=== PATIENT | female | born 1975 | race African-American/Black ===

== ENCOUNTER 2023-09-09 16:42 | Outpatient (CLI) | payer OTHER, SELFPAY | END 2023-09-09 16:43 | disposition home or self-care (01) | LOC: NFLDREF 09-11 06:03 | PROVIDERS: Visit Provider Physician Assistant | DX: R10.9 Unspecified abdominal pain (principal) | CPT/HCPCS: 87086 ==

== ENCOUNTER 2023-09-09 19:31 | Emergency (ER) | payer OTHER, SELFPAY ==
[2023-09-09 19:54] VITALS: BP 150/94; PULSE 88; RESP 16; TEMP 36.7; O2SAT 100; BMI 28.7
--- NOTE | 2023-09-09 20:26 | ED.GENADULT ---
HPI - General Adult General Date Seen: 09/09/23 Chief complaint: Back Injury/Pain Stated complaint: Ref from -pain in lower R back-Did UA there Time Seen by Provider: 09/09/23 20:25 History of Present Illness HPI narrative: 48-year-old female was referred from the Urgent Care to the ER for evaluation of right flank pain and back pain. She did rule is a dialysis and fluid appeared to [place] to visit family 2 days ago on Thursday. She had presented to the urgent care this evening for evaluation of right lower back pain that began about 2 days ago, after she arrived in [place]. 48 hours ago. He pain began after she flew from [place] up to [place]. She did carry her luggage to the ER for but does recall heavy lifting or other twisting or injury.t It is sharp and burning, in the right flank. It also radiates around the right lateral abdomen to the right upper quadrant but is much more mild in the anterior compared to the posterior. Pain is worse with movement did twisting. It is not really related to eating. No fever. No nausea or vomiting. Urination normal. Bowel movements normal. She has no previous history of similar paid. No other recent right upper quadrant pains to suggest biliary colic. In urgent care urinalysis was reported as ?normal. In review it shows 0-2 RBC, 0-2 WBC, moderate squames, negative nitrite, negative leukocyte esterase, negative blood, and trace ketones. Negative glucose. Related Data Home Medications Medication Instructions Recorded Confirmed No Known Home Medications 09/09/23 09/09/23 Allergies Allergy/AdvReac Type Severity Reaction Status Date / Time No Known Drug Allergies Allergy Verified 09/09/23 19:53 PFSH PFS Social History Smoking Status: Never smoker Do you use any of these nicotine containing products: None How often do you have a drink containing alcohol: never AUDIT-C Alcohol total score: 0 Non-prescribed substance use: denies use Exam Narrative: Exam Narrative: Constitutional: Appears well-developed and well-nourished. Alert. Conversant, but uncomfortable. Non toxic. HENT: Head: Atraumatic. Nose: Nose normal. Mouth/Throat: Oral mucosa is clear and moist. no trismus. Pharynx normal. Tonsils symmetric. No tonsillar enlargement, erythema, or exudate. Eyes: Conjunctivae normal. EOM normal. Pupils equal, round, and reactive to light. No scleral icterus. Neck: Normal range of motion. Neck supple. No tracheal deviation present. Cardiovascular: Normal rate, regular rhythm. No gallop. No friction rub. No murmur heard. Symmetric radial artery pulses Pulmonary/Chest: Effort normal. No stridor. No respiratory distress. No wheezes. No rales. No rhonchi . No tenderness. Abdominal: Soft. Bowel sounds normal. No distension. No mass. No tenderness. No rebound. No guarding. Marked right CVA tenderness. No swelling, bruising, abrasion cover shingles. Very mild right upper quadrant tenderness but negative Mckay sign. No palpable hepatomegaly. Musculoskeletal: RUE: Normal range of motion. No tenderness. No deformity LUE: Normal range of motion. No tenderness. No deformity RLE: Normal range of motion. No edema. No tenderness. No deformity LLE: Normal range of motion. No edema. No tenderness. No deformity Lymph: No cervical adenopathy. Neurological: Alert and oriented to person, place, and time. Normal strength. CN II-VII intact. No sensory deficit. GCS eye subscore is 4. GCS verbal subscore is 5. GCS motor subscore is 6. Normal coordination Skin: Skin is warm and dry. No rash noted. No pallor. Normal capillary refill. Psychiatric: Normal mood. Normal affect. Const: Vital Signs, click to edit/add: Vital Signs - 24 hr 09/09/23 19:54 09/09/23 23:32 Temperature 98.1 F 98.1 F Pulse Rate [Pulse Oximeter] 88 79 Respiratory Rate 16 16 Blood Pressure [Ri ght Upper Arm] 150/94 H 135/84 Pulse Oximetry 100 100 Oxygen Delivery Me thod Room Air Room Air Course Vital Signs Vital signs: Initial Vital Signs Temperature 98.1 F 09/09/23 19:54 Temperature Source Temporal Artery Scan 09/09/23 19:54 Pulse Rate 88 09/09/23 19:54 Respiratory Rate 16 09/09/23 19:54 Blood Pressure 150/94 H 09/09/23 19:54 Blood Pressure Mean 112 H 09/09/23 19:54 Blood Pressure Position Sitting 09/09/23 19:54 Pulse Oximetry 100 09/09/23 19:54 Oxygen Delivery Method Room Air 09/09/23 19:54 Vital Signs Temperature 98.1 F 09/09/23 19:54 Pulse Rate 88 09/09/23 19:54 Respiratory Rate 16 09/09/23 19:54 Blood Pressure 150/94 H 09/09/23 19:54 Pulse Oximetry 100 09/09/23 19:54 Oxygen Delivery Method Room Air 09/09/23 19:54 Temperature 98.1 F 09/09/23 23:32 Pulse Rate 79 09/09/23 23:32 Respiratory Rate 16 09/09/23 23:32 Blood Pressure 135/84 09/09/23 23:32 Pulse Oximetry 100 09/09/23 23:32 Oxygen Delivery Method Room Air 09/09/23 23:32 Medications Administered Medications: Discontinued Medications Generic Name Dose Route Start Last Admin Trade Name Freq PRN Reason Stop Dose Admin Hydromorphone HCl 0.5 mg 09/09/23 20:39 09/09/23 21:21 Hydromorphone 0.5 Mg/0.5 Ml Inj IVP 0.5 mg Q1H PRN Administration Pain Metoclopramide HCl 10 mg 09/09/23 23:27 09/09/23 23:32 Metoclopramide Hcl 5 Mg/Ml Inj IVP 09/09/23 23:28 Not Given ONCE ONE Ondansetron HCl 4 mg 09/09/23 20:39 09/09/23 21:21 Ondansetron 2 Mg/Ml Inj IVP 09/09/23 20:40 4 mg ONCE ONE Administration Medical Decision Making MDM Narrative Medical decision making narrative: Presented to the Emergency Department with right flank pain with some radiation into the right upper quadrant. The differential diagnosis of abdominal pain includes: Kidney stone, cholecystitis, biliary colic, shingles, Appendicitis, Bowel Obstruction, Ulcer, Ischemia, Cholecystitis, Diverticulitis, Pancreatitis, UTI, kidney stone, Enteritis/Colitis, amongst many other etiologies. UA from urgent care was normal. Laboratory testing does not reveal a cause for the patient's pain. CT abdomen pelvis is noted to be normal. No evidence for any obstructing stones or pyelonephritis head CT. No evidence for any radiopaque gallstones on CT. No evidence for any pericholecystic fluid, inflammation on CT. Discussed with the patient and her aunt, who is with her, that gallbladder ultrasound would be a more sensitive test to look for gallstones. However with no lab abnormalities, and no evidence for any inflammation around the gallbladder, likelihood of needing acute surgical intervention for acute cholecystitis at this point is low. They would prefer to hold off on excess testing if possible because she is traveling and currently out of her network for her insurance. I think it is reasonable to treat supportively for now with close return precautions. Discussed with the patient and her aunt that the exact etiology of the abdominal pain is not clear at this time. No life threatening cause or need for emergent surgery or hospital admission is detected today. The patient was advised that if symptoms do not completely resolve within another 24-36 hours re-evaluation with primary care or return to the ED is indicated. The patient also understands that if they worsen, they should return to the ER right away. I discussed the uncertainty about the diagnosis and answered the patient's questions. Abdominal pain return precautions discussed In [place] prescriptions for Luke, Flexeril, Zofran for supportive care. Opiate sedation precautions reviewed. Lab Data Labs: Lab Results 09/09/23 Range/Units 21:05 WBC 10.83 (4.50-11.00) K/uL RBC 5.01 (4.00-5.20) m/uL Hgb 12.6 (12.0-16.0) gm/dL Hct 38.7 (33.0-51.0) % MCV 77 L (80-100) fL MCH 25 L (26-34) pg MCHC 33 (32-36) gm/dL RDW Coeff of Wilber 14.4 (11.5-15.5) % Plt Count 306 (140-440) K/uL Neut % (Auto) 52.9 (42.0-72.0) % Lymph % (Auto) 38.7 (20-44) % [place] % (Auto) 6.6 (0.0-11.0) % Eos % (Auto) 1.3 (0.0-7.0) % Baso % (Auto) 0.4 (0.0-3.0) % Neut # (Auto) 5.74 (1.7-7.0) K/uL Lymph # (Auto) 4.19 H (0.90-2.90) K/uL [place] # (Auto) 0.70 (0.00-0.90) K/UL Eos # (Auto) 0.14 (0.00-0.50) K/uL Baso # (Auto) 0.04 (0.00-0.30) K/uL Abs Immat Gran (auto) 0.01 (0.00-0.30) K/uL Imm/Tot Granulo (auto) 0.1 % Sodium 137 (135-149) mmol/L Potassium 3.2 L (3.6-5.1) mmol/L Chloride 105 (96-114) mmol/L Carbon Dioxide 23 (20-32) mmol/L Anion Gap 9 (7-15) mEq/L BUN 10 (5-24) mg/dL Creatinine 0.6 (0.5-1.5) mg/dL Estimated Creat Clear 126.69 Estimated GFR 112 ml/min Glucose 85 (60-115) mg/dL Calcium 8.4 (8.4-10.6) mg/dL Total Bilirubin 0.4 (0.1-1.5) mg/dL AST 19 (12-35) U/L ALT 19 (4-35) U/L Alkaline Phosphatase 137 (40-150) U/L Total Protein 7.5 (6.0-8.3) g/dL Albumin 4.1 (3.3-5.0) g/dL Lipase 41 (23-300) U/L HCG, Qual Negative (Negative) Discharge Plan Discharge Clinical Impression: Acute right flank pain Patient Disposition: Home, Self-Care Condition: Stable Instructions: Abdominal Pain (ED), Flank Pain (ED) Additional Instructions: As we discussed, use caution with pain killers and muscle relaxers because they can cause drowsiness and dizziness. Do not drive a car or operate machinery for 6 hours after you have taken these medications. Use caution with Luke because it can cause constipation. Luke can be addictive. If you have worsening symptoms such as worsening pain, fever, trouble breathing, uncontrolled nausea or vomiting, jaundice, or any concerns, please return to the ER immediately. If your pain is not improving within the next 24-48 hours, please return to the ER or see your doctor for a recheck. Prescriptions: No Action No Known Home Medications Follow Up/Referrals: Provider,Not a Local [Primary Care Provider] - Stand Alone Forms: [employer] Info Instructions
--- NOTE | 2023-09-09 20:39 | CRLHL7_ITS ---
For Patients: As a result of the Century Cures Act, medical imaging exams and procedure reports are released immediately into your electronic medical record. You may view this report before your referring provider. If you have questions, please contact your health care provider. INDICATION: Right flank pain, right upper quadrant pain TECHNIQUE: CT abdomen and pelvis without contrast. COMPARISON: None. FINDINGS: Lower chest: Bibasilar atelectasis and/or scarring. No acute abnormality appreciated. Hepatobiliary: No acute abnormality appreciated. Spleen: Unremarkable. Pancreas: Unremarkable. Adrenal glands: Unremarkable. Kidneys: No gross parenchymal abnormality appreciated. No calculi are visualized. No hydronephrosis. Bowel: No obstruction. No focal perienteric or pericolonic stranding is appreciated. The appendix is visualized and appears unremarkable. Vascular: Unremarkable. Lymph nodes: Unremarkable. Peritoneum: No free air. No free fluid. : IUD present. Bulky uterus with at least 1 large, possibly degenerating fibroid arising from the left fundus. Soft tissues: Unremarkable. Bones: No acute abnormality appreciated. IMPRESSION: 1. No calculi or hydronephrosis appreciated. 2. Bulky uterus with at least 1 large mass likely representing a degenerating fibroid, not well evaluated on this examination. Pelvic ultrasound could be considered for further evaluation. Please note that all CT scans at this facility use dose modulation, iterative reconstruction, and/or weight-based dosing when appropriate to reduce radiation dose to as low as reasonably achievable. Dictated by Ricardo Sullivan MD @ 09/09/2023 9:28:03 PM (Electronically Signed)
[2023-09-09 21:20] LABS: Basophils Absolute Auto 0.04 K/uL (0.00-0.30); Basophils Percent Auto 0.4 % (0.0-3.0); Eosinophils Absolute Auto 0.14 K/uL (0.00-0.50); Eosinophils Percent Auto 1.3 % (0.0-7.0); Hematocrit 38.7 % (33.0-51.0); Hemoglobin* 12.6 gm/dL (12.0-16.0); Immature Granulocytes Abs Auto 0.01 K/uL (0.00-0.30); Immature Granulocytes Pct Auto 0.1 %; Lymphocytes Absolute Auto 4.19 K/uL (0.90-2.90); Lymphocytes Percent Auto 38.7 % (20-44); Mean Corpuscular HGB Conc 33 gm/dL (32-36); Mean Corpuscular Hemoglobin 25 pg (26-34); Mean Corpuscular Volume 77 fL (80-100); Monocytes Percent Auto 6.6 % (0.0-11.0); Neutrophils Absolute Auto 5.74 K/uL (1.7-7.0); Neutrophils Percent Auto 52.9 % (42.0-72.0); Platelet Count* 306 K/uL (140-440); RDW Coefficient of Variation % 14.4 % (11.5-15.5); Red Blood Count 5.01 m/uL (4.00-5.20); White Blood Count* 10.83 K/uL (4.50-11.00)
[2023-09-09] MEDS: ONDANSETRON 2 MG/ML inj 4 MG IVP (21:21)
[2023-09-09] MEDS: HYDROmorphone 0.5 mg/0.5 ml inj IVP (21:21)
[2023-09-09 21:26] LABS: Slide Review Reflex No
[2023-09-09 22:07] LABS: Albumin* 4.1 g/dL (3.3-5.0); Chloride* 105 mmol/L (96-114); Potassium* 3.2 mmol/L (3.6-5.1); Sodium* 137 mmol/L (135-149)
[2023-09-09 22:09] LABS: Anion Gap 9 mEq/L (7-15); Aspartate Amino Transferase* 19 U/L (12-35); Bilirubin Total* 0.4 mg/dL (0.1-1.5); Carbon Dioxide* 23 mmol/L (20-32); Creatinine* 0.6 mg/dL (0.5-1.5); Est. Creatinine Clearance* 126.69; Estimated Glomerular Filt Rate 112 ml/min; Total Protein* 7.5 g/dL (6.0-8.3)
[2023-09-09 22:10] LABS: Alanine Aminotransferase* 19 U/L (4-35); Alkaline Phosphatase* 137 U/L (40-150); Blood Urea Nitrogen* 10 mg/dL (5-24); Calcium* 8.4 mg/dL (8.4-10.6); Glucose* 85 mg/dL (60-115); Lipase* 41 U/L (23-300)
[2023-09-09 22:20] LABS: HCG Qualitative Serum* Negative (Negative)
[2023-09-09 23:32] VITALS: BP 135/84; PULSE 79; RESP 16; TEMP 36.7; O2SAT 100
== END 2023-09-09 23:36 | disposition home or self-care (01) ==
PROVIDERS: Emergency Provider Emergency Medicine
DX: R10.11 Right upper quadrant pain (principal)
CPT/HCPCS: 36415; 74176; 80053; 83690; 84703; 85025; 94761; 96374; 96375; 99284; J1170; J2405